=== PATIENT | male | born 1970 | race Caucasian/White ===

== ENCOUNTER 2018-12-12 16:34 | Emergency (ER) | payer BC ==
[2018-12-12] MEDS ORDERED: Bacitracin Oint 1 GM U/D Packet TOP ONE (17:09)
--- NOTE | 2018-12-12 17:14 | EDM.PDOC ---
ED HPI GENERAL MEDICAL PROBLEM - General Chief Complaint: Laceration Stated Complaint: CUT ON CHIN Time Seen by Provider: 12/12/18 17:10 Source of Information: Reports: Patient History Limitations: Reports: No Limitations - History of Present Illness INITIAL COMMENTS - FREE TEXT/NARRATIVE: pt came down on a water bottle just as he was getting on a tube. He has a 1/2 inch cut to the area. He does not have dental injury. He is uncertain about his tetanus. w Onset: Today Duration: Hour(s): Location: Reports: Face Associated Symptoms: Reports: No Other Symptoms - Related Data Allergies Allergy/AdvReac Type Severity Reaction Status Date / Time No Known Allergies Allergy Verified 12/12/18 17:01 Home Meds: Home Meds NK [No Known Home Meds] 12/12/18 [History] Past Medical History Musculoskeletal History: Reports: Back Pain, Chronic - Past Surgical History GI Surgical History: Reports: Cholecystectomy, Hernia, Inguinal Social & Family History - Tobacco Use Smoking Status *Q: Unknown Ever Smoked - Caffeine Use Caffeine Use: Reports: Soda - Recreational Drug Use Recreational Drug Use: No ED ROS GENERAL - Review of Systems Review Of Systems: See Below Constitutional: Reports: No Symptoms HEENT: Reports: Other (pt has a 1/2 inch laceration on the chin. ) Respiratory: Reports: No Symptoms Cardiovascular: Reports: No Symptoms Endocrine: Reports: No Symptoms GI/Abdominal: Reports: No Symptoms : Reports: No Symptoms Musculoskeletal: Reports: No Symptoms Skin: Reports: Other (laceration) ED EXAM, SKIN/RASH Exam: See Below Text/Narrative:: pt hit his chin on a water bottle and he has a 1/2 inch laceration on his chin. Exam Limited By: No Limitations General Appearance: Alert, Anxious, Mild Distress Ears: Normal TMs Nose: Normal Inspection Throat/Mouth: Other (laceration on the chin. ) Head: Atraumatic Neck: Normal Inspection Respiratory/Chest: No Respiratory Distress Cardiovascular: Regular Rate, Rhythm GI/Abdominal: Soft, Non-Tender Course - Vital Signs Last Recorded V/S: Last Vital Signs Temp 37.1 C 12/12/18 17:24 Pulse 67 12/12/18 17:24 Resp 16 12/12/18 17:24 BP 128/86 12/12/18 17:24 Pulse Ox 94 L 12/12/18 17:24 - Orders/Labs/Meds Meds: Medications Discontinued Medications Generic Name Dose Route Start Last Admin Trade Name Denice PRN Reason Stop Dose Admin Bacitracin 1 dose 12/12/18 17:09 Bacitracin Oint 1 Gm TOP 12/12/18 17:10 ONETIME ONE Lidocaine HCl 5 ml 12/12/18 17:09 12/12/18 17:26 Xylocaine-Mpf 1% INJECT 12/12/18 17:10 5 ml ONETIME ONE Administration - Re-Assessments/Exams Free Text/Narrative Re-Assessment/Exam: 12/12/18 17:33 area wascleansed well and infiltrated with lidocaine. It was closed with 5-0 chromic and 6-0 prolene. The area was covered with bacatracin, Departure - Departure Time of Disposition: 17:34 Disposition: Home, Self-Care 01 Condition: Fair Clinical Impression: Laceration - Discharge Information Referrals: PCP,None [Primary Care Provider] - Forms: ED Department Discharge Care Plan Goals: keep dry, no further ointments, suture removal in 7 days. rtc if any problems.
== END 2018-12-12 17:43 | disposition home or self-care (01) ==
LOC: JP.ED 16:34
DX: S01.81XA Laceration without foreign body of other part of head, initial encounter (principal); Z90.49 Acquired absence of other specified parts of digestive tract; W45.8XXA Other foreign body or object entering through skin, initial encounter
CPT/HCPCS: 12011; 99282; J2001